=== PATIENT | male | born 1980 | race Two or more races ===

== ENCOUNTER 2017-06-10 15:09 | Emergency (ER) | payer MEDICAID ==
[2017-06-10 15:22] VITALS: BP 118/75
--- NOTE | 2017-06-10 15:43 | ED Physician Documentation ---
PD HPI URI - Stated complaint Stated Complaint: POSS FEVER - Chief complaint Chief Complaint: General - History obtained from History obtained from: Patient - History of Present Illness Timing - onset: How many days ago (3) Timing duration: Days (2) Timing details: Abrupt onset, Now resolved Associated symptoms: Fever, Chills, NVD (He had fever chills and some nausea but no vomiting. He has had a lot of diarrhea. He states it lasted for 1-2 days and has improved. He was feeling better the last day from last evening into today. No further diarrhea or feeling of fevers. He has not had any head cold symptoms or cough. He was going to return to work but is employer said he needed a work note clearing him since he had had a diarrheal illness. He has not had any recent travel. He has not been any recent antibiotics.) Contributing factors: No: Sick contact, Travel, Immunocompromised Similar symptoms before: Has not had sx before Recently seen: Not recently seen Review of Systems Constitutional: reports: Fever (for 2 days, improved the past day), Chills, Myalgias Nose: denies: Rhinorrhea / runny nose, Congestion Throat: denies: Sore throat Respiratory: denies: Cough GI: reports: Nausea, Diarrhea (improved). denies: Abdominal Pain, Vomiting Skin: denies: Rash, Lesions PD PAST MEDICAL HISTORY - Past Medical History Cardiovascular: None Respiratory: None Neuro: Head injury, Seizure disorder Endocrine/Autoimmune: None GI: None : None HEENT: None Psych: Bipolar disorder, Schizophrenia, Post traumatic stress disorder Musculoskeletal: None Derm: None - Past Surgical History Past Surgical History: Yes - Present Medications Home Medications: Ambulatory Orders Medication Instructions Recorded Confirmed No Known Home Medications [No 06/10/17 06/10/17 Known Home Medications] - Allergies Allergies/Adverse Reactions: Allergies Allergy/AdvReac Type Severity Reaction Status Date / Time No Known Drug Allergies Allergy Verified 06/10/17 15:22 - Social History Does the pt smoke?: No Smoking Status: Former smoker Does the pt drink ETOH?: No Does the pt have substance abuse?: No - Immunizations Immunizations are current?: No - POLST Patient has POLST: No PD ED PE NORMAL - Vitals Vital signs reviewed: Yes - General General: Alert and oriented X 3, No acute distress, Well developed/nourished - HEENT HEENT: Moist mucous membranes, Pharynx benign - Neck Neck: Supple, no meningeal sign, No adenopathy - Cardiac Cardiac: RRR, No murmur - Respiratory Respiratory: Clear bilaterally - Abdomen Abdomen: Normal bowel sounds, Soft, Non tender - Derm Derm: Normal color, Warm and dry - Neuro Neuro: Alert and oriented X 3, No motor deficit, Normal speech Results - Vitals Vitals: Oxygen O2 Source Room air PD MEDICAL DECISION MAKING - ED course Complexity details: considered differential (Sounds like he had a brief viral gastroenteritis and is now feeling better. He should be low infectivity without any fever, chills, persistent diarrhea. I think it is reasonable for him to return to work since he has been without symptoms over a day.), d/w patient Departure - Departure Disposition: 01 Home, Self Care Clinical Impression: Viral gastroenteritis Condition: Stable Record reviewed to determine appropriate education?: Yes Comments: Since your symptoms have resolved he do not have any further fevers, chills, diarrhea, it is reasonable for her to resume work. I wrote a note as such. Drink lots of fluids. Forms: Activity restrictions Discharge Date/Time: 06/10/17 15:56
== END 2017-06-10 15:56 | disposition home or self-care (01) ==
LOC: ED 15:09
DX: A08.4 Viral intestinal infection, unspecified (principal); Z87.891 Personal history of nicotine dependence
CPT/HCPCS: 99282; 99283

== ENCOUNTER 2018-02-03 20:58 | Emergency (ER) | payer MEDICAID ==
[2018-02-03] MEDS ORDERED: LORazepam 0.5 MG TABLET PO STA (21:32)
--- NOTE | 2018-02-03 21:35 | ED Physician Documentation ---
PD HPI MHE - Stated complaint Stated Complaint: MHE - Chief complaint Chief Complaint: MHE - History obtained from History obtained from: Patient - History of Present Illness Primary symptom: Anxiety (37-year-old gentleman with long-standing history of bipolar and anxiety disorder currently unmedicated. Has had bad reactions to BuSpar and Abilify in the past with little them causing more anxiety. He had a verbal altercation with his boss yesterday and it has increased his anxiety. He has chronic suicidal ideation but nothing new and no plan.) Review of Systems Constitutional: reports: Reviewed and negative Throat: reports: Reviewed and negative Cardiac: reports: Reviewed and negative PD PAST MEDICAL HISTORY - Past Medical History Cardiovascular: None Respiratory: None Endocrine/Autoimmune: None GI: None : None HEENT: None Psych: Bipolar disorder, Schizophrenia, Post traumatic stress disorder Musculoskeletal: None Derm: None - Past Surgical History Past Surgical History: Yes - Present Medications Home Medications: Ambulatory Orders Medication Instructions Recorded Confirmed LORazepam [Ativan] 0.5 mg PO Q6H PRN #10 tablet 02/03/18 - Allergies Allergies/Adverse Reactions: Allergies Allergy/AdvReac Type Severity Reaction Status Date / Time No Known Drug Allergies Allergy Verified 02/03/18 21:04 - Social History Does the pt smoke?: No Smoking Status: Former smoker Does the pt drink ETOH?: No Does the pt have substance abuse?: No - Immunizations Immunizations are current?: No - POLST Patient has POLST: No PD ED PE NORMAL - Vitals Vital signs reviewed: Yes - General General: Alert and oriented X 3, No acute distress, Other (Well-kempt and groomed with good eye contact, Linear thinking.) - HEENT HEENT: PERRL, EOMI - Neuro Neuro: Alert and oriented X 3, 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 We discussed hospitalization which he declined. He has been on Ativan in the past short-term which has been helpful. Departure - Departure Disposition: Home, Self Care Clinical Impression: Anxiety Condition: Good Record reviewed to determine appropriate education?: Yes Instructions: ED Panic Attack Prescriptions: LORazepam [Ativan] 0.5 mg PO Q6H PRN #10 tablet PRN Reason: Anxiety Comments: Follow-up with [place] services for further evaluation and counseling as soon as possible. Return if worse or if new symptoms develop. Forms: Activity restrictions
[2018-02-03] MEDS ORDERED: ACETAMINOPHEN 325 MG TABLET PO STA (21:42)
[2018-02-03 21:55] VITALS: BP 129/88
== END 2018-02-03 21:58 | disposition home or self-care (01) ==
LOC: ED 20:58
DX: F41.9 Anxiety disorder, unspecified (principal); Z87.891 Personal history of nicotine dependence
CPT/HCPCS: 99283; A9270

== ENCOUNTER 2018-05-18 03:50 | Emergency (ER) | payer MEDICAID ==
[2018-05-18 03:56] VITALS: BP 121/83
--- NOTE | 2018-05-18 04:00 | ED Physician Documentation ---
PD HPI ABD PAIN - Stated complaint Stated Complaint: ABD PAIN - Chief complaint Chief Complaint: Abd Pain - History obtained from History obtained from: Patient - History of Present Illness Timing - onset: How many months ago (3) Timing - duration: Months (3) Timing - details: Intermittant (notes pain in right umbilical area when lifting or working out, or with abd fullness. Feels small lump in the area. No vomiting nor nausea. He says it has been aching more the past 1-2 weeks with activity. Thinks it is a hernia.) Quality: Cramping, Aching Location: Periumbilical Radiation: No: Lower back, Left flank, Right flank Improved by: No: Eating Worsened by: Moving (mostly with working out, sit ups, leg lifts, and with lifting objects at work too.), Palpation. No: Eating, Breathing Associated symptoms: No: Fever, Nausea, Vomiting, Diarrhea, Constipation, Dysuria Similar symptoms before: Has not had sx before Recently seen: Not recently seen Review of Systems Constitutional: denies: Fever Nose: denies: Rhinorrhea / runny nose, Congestion Throat: denies: Sore throat Respiratory: denies: Cough GI: denies: Abdominal Swelling, Nausea, Vomiting, Constipation, Diarrhea, Bloody / black stool : denies: Dysuria, Frequency, Discharge Skin: denies: Rash PD PAST MEDICAL HISTORY - Past Medical History Cardiovascular: None Respiratory: None Endocrine/Autoimmune: None GI: None : None HEENT: None Psych: Bipolar disorder, Schizophrenia, Post traumatic stress disorder Musculoskeletal: None Derm: None - Past Surgical History Past Surgical History: Yes - Present Medications Home Medications: Ambulatory Orders Medication Instructions Recorded Confirmed No Known Home Medications 05/18/18 05/18/18 - Allergies Allergies/Adverse Reactions: Allergies Allergy/AdvReac Type Severity Reaction Status Date / Time No Known Drug Allergies Allergy Verified 05/18/18 03:56 - Social History Does the pt smoke?: No Smoking Status: Never smoker Does the pt drink ETOH?: No Does the pt have substance abuse?: No - Immunizations Immunizations are current?: No - POLST Patient has POLST: No PD ED PE NORMAL - Vitals Vital signs reviewed: Yes - General General: Alert and oriented X 3, No acute distress, Well developed/nourished - Neck Neck: Supple, no meningeal sign, No adenopathy - Cardiac Cardiac: RRR, No murmur - Respiratory Respiratory: Clear bilaterally - Abdomen Abdomen: Normal bowel sounds, Soft, Non tender, Non distended, No organomegaly, Other (small hernia felt umbilical area, just to the right, which is not palpable unless he tightens abd, doing sit up type maneuver. Locally tender to deep palpation. No inguinal hernias. ) Results - Vitals Vitals: Vital Signs - 24 hr 05/18/18 03:52 Temperature 36.3 C L Heart Rate 76 Respiratory 18 Rate Blood Pressure 121/83 H O2 Saturation 99 Oxygen O2 Source Room air PD MEDICAL DECISION MAKING - ED course Complexity details: considered differential (has palpable small hernia when doing situp or stands/tensing abd. Small and reduces as default. Is locally some tender. Can refer to Surgery for consultation about repair PRN. Talked with him about problems that can arise (incarceration and obstruction). ), d/w patient Departure - Departure Disposition: 01 Home, Self Care Clinical Impression: Abdominal pain Qualifiers: Abdominal location: periumbilical Qualified Code(s): R10.33 - Periumbilical pain Umbilical hernia Qualifiers: Obstruction and gangrene presence: without obstruction or gangrene Qualified Code(s): K42.9 - Umbilical hernia without obstruction or gangrene Instructions: ED Hernia Inguinal Follow-Up: Anne Beasley ARNP [Primary Care Provider] - [facility]Provider Group] Marcus Mcclendon MD [Provider Admit Priv/Credential] - Comments: Naproxen or ibuprofen if needed for pains intermittently. This does feel like an umbilical hernia and is likely to be sore with activity. You can drink a lot of fluids and make sure you use fiber and can use a daily daily stool softener such as docusate to ensure you have an easy bowel movements and decrease abdominal pressure. Otherwise will just be sore with activity and heavy lifting. The bad problems which are very uncommon would be incarceration/strangulation or bowel obstruction related to it. These will be fairly obvious and refer to the information sheet. Otherwise follow-up with surgery office regarding potential surgical repair if it is annoying enough for you. Discharge Date/Time: 05/18/18 04:35
[2018-05-18] MEDS ORDERED: NAPROXEN 250 MG TABLET PO STA (04:26)
== END 2018-05-18 04:35 | disposition home or self-care (01) ==
LOC: ED 03:50
DX: K42.9 Umbilical hernia without obstruction or gangrene (principal)
CPT/HCPCS: 99282; 99283; A9270

== ENCOUNTER 2018-10-26 08:01 | Emergency (ER) | payer MEDICAID ==
[2018-10-26 08:14] VITALS: BP 126/85
--- NOTE | 2018-10-26 08:41 | ED Physician Documentation ---
PD HPI GI BLEED - Stated complaint Stated Complaint: BLOOD IN STOOL - Chief complaint Chief Complaint: Abd Pain - History obtained from History obtained from: Patient - History of Present Illness Timing - onset: Today Associated symptoms: BRBPR Similar symptoms before: Has not had sx before - Additional information Additional information: The patient is a 38-year-old male who presents with bright red blood per rectum. After having a bowel movement this morning he noticed blood on the toilet paper. There was no dripping of blood in the commode. He denies any rectal pain. He denies abdominal pain, nausea or vomiting. He has no history of similar symptoms in the past. He denies any recent constipation, cough, or strenuous lifting. Review of Systems Constitutional: denies: Fever Nose: denies: Congestion Cardiac: denies: Chest pain / pressure Respiratory: denies: Dyspnea, Cough GI: reports: Bloody / black stool. denies: Abdominal Pain, Nausea, Vomiting : denies: Dysuria Skin: denies: Rash Musculoskeletal: denies: Back pain Neurologic: denies: Generalized weakness, Headache PD PAST MEDICAL HISTORY - Past Medical History Cardiovascular: None Respiratory: None Endocrine/Autoimmune: None GI: None : None HEENT: None Psych: Bipolar disorder, Schizophrenia, Post traumatic stress disorder Musculoskeletal: None Derm: None - Past Surgical History Past Surgical History: Yes - Present Medications Home Medications: Ambulatory Orders Medication Instructions Recorded Confirmed Hydrocortisone [Anusol-Hc] 30 gm RC BID #1 cream..g. 10/26/18 - Allergies Allergies/Adverse Reactions: Allergies Allergy/AdvReac Type Severity Reaction Status Date / Time No Known Drug Allergies Allergy Verified 10/26/18 08:14 - Social History Does the pt smoke?: No Smoking Status: Never smoker Does the pt drink ETOH?: No Does the pt have substance abuse?: No - Immunizations Immunizations are current?: No - POLST Patient has POLST: No PD ED PE NORMAL - Vitals Vital signs reviewed: Yes (Normal) - General General: Alert and oriented X 3, Well developed/nourished - HEENT HEENT: Atraumatic, Pharynx benign - Neck Neck: No adenopathy - Cardiac Cardiac: RRR - Respiratory Respiratory: No respiratory distress, Clear bilaterally - Abdomen Abdomen: Soft, Non tender - Rectal Rectal: Other (Scant bright red blood on finger with rectal exam. No rectal tenderness.) - Back Back: No CVA TTP - Derm Derm: No rash - Neuro Neuro: Alert and oriented X 3, Normal speech PD ED PE EXPANDED - Rectal Rectal: Heme Occult Pos - QC +, Normal Tone Results - Vitals Vitals: Vital Signs - 24 hr 10/26/18 08:12 Temperature 36.7 C Heart Rate 72 Respiratory 12 Rate Blood Pressure 126/85 H O2 Saturation 96 Oxygen O2 Source Room air PD MEDICAL DECISION MAKING - ED course Complexity details: considered differential, d/w patient, d/w family ED course: The patient's presentation is most consistent with internal hemorrhoid. There is no mass or rectal pain on rectal examination. The patient is being discharged with prescription for Anusol HC. I discussed with him and his the expected course of healing, symptomatic treatment and outpatient follow-up, as well as potentially worrisome signs or symptoms that should prompt reevaluation in the emergency department. Departure - Departure Disposition: 01 Home, Self Care Clinical Impression: Internal hemorrhoid Condition: Stable Instructions: ANUSOL-HC Suppositories, ED Hemorrhoids Follow-Up: Anne Beasley ARNP [Primary Care Provider] - Prescriptions: Hydrocortisone [Anusol-Hc] 30 gm RC BID #1 cream..g. Comments: Use stool softener for the next 5 to 10 days. Wash your anal area twice daily with warm soapy water. Apply Anusol HC suppository twice daily. Avoid straining that causes increased abdominal pressure. Follow-up with your primary physician within 2 weeks. Return to the emergency department if you develop increasing rectal bleeding, or otherwise worsening symptoms.
== END 2018-10-26 08:48 | disposition home or self-care (01) ==
LOC: ED 08:01
DX: K64.8 Other hemorrhoids (principal)
CPT/HCPCS: 99282; 99284

== ENCOUNTER 2018-11-13 20:57 | Emergency (ER) | payer MEDICAID ==
[2018-11-13 21:06] VITALS: BP 124/74
--- NOTE | 2018-11-13 21:20 | ED Physician Documentation ---
PD HPI UPPER EXT INJURY - Stated complaint Stated Complaint: LFT SHLDR INJ - Chief complaint Chief Complaint: Ext Problem - History obtained from History obtained from: Patient - History of Present Illness Timing - onset: How many days ago (5) Timing - duration: Days (5) Timing - details: Gradual onset Pain level max: 7 Pain level now: 6 Improved by: Rest Worsened by: Moving, Palpating - Additonal information Additional information: states dull aching pain to the L "trapezius" for the past 5 days. states this has happened in the past when he sleeps wrong. no relief with tylenol. No injury. Review of Systems Constitutional: denies: Fever, Chills GI: denies: Vomiting, Diarrhea Skin: denies: Rash Musculoskeletal: denies: Neck pain, Back pain Neurologic: denies: Headache PD PAST MEDICAL HISTORY - Past Medical History Past Medical History: No Cardiovascular: None Respiratory: None Neuro: Other Endocrine/Autoimmune: None GI: Hemorrhoids : None HEENT: None Psych: Bipolar disorder, Schizophrenia, Post traumatic stress disorder Musculoskeletal: None Derm: None Other Past Medical History: umbilical hernia - Past Surgical History Past Surgical History: Yes - Present Medications Home Medications: Ambulatory Orders Medication Instructions Recorded Confirmed Hydrocortisone [Anusol-Hc] 30 gm RC BID #1 cream..g. 10/26/18 Cyclobenzaprine [Flexeril] 10 mg PO TID PRN #20 tablet 11/13/18 Meloxicam [Mobic] 15 mg PO DAILY PRN #20 tablet 11/13/18 - Allergies Allergies/Adverse Reactions: Allergies Allergy/AdvReac Type Severity Reaction Status Date / Time No Known Drug Allergies Allergy Verified 11/13/18 21:06 - Social History Does the pt smoke?: No Smoking Status: Former smoker Does the pt drink ETOH?: Yes Does the pt have substance abuse?: Yes Substance Use and Type: Marijuana - Immunizations Immunizations are current?: No - POLST Patient has POLST: No PD ED PE NORMAL - Vitals Vital signs reviewed: Yes - General General: Alert and oriented X 3, No acute distress - HEENT HEENT: PERRL, Moist mucous membranes - Neck Neck: Supple, no meningeal sign, No bony TTP - Cardiac Cardiac: RRR - Respiratory Respiratory: No respiratory distress, Clear bilaterally - Derm Derm: Warm and dry - Extremities Extremities: Other (Left shoulder - Neurovascular intact including axillary nerve. Full range of motion of the shoulder present. He is tender over the rhomboid muscle. Mild spasm present. No bony tenderness.) - Neuro Neuro: Alert and oriented X 3 Results - Vitals Vitals: Vital Signs - 24 hr 11/13/18 21:04 Temperature 37.1 C Heart Rate 73 Respiratory 17 Rate Blood Pressure 124/74 O2 Saturation 97 Oxygen O2 Source Room air PD MEDICAL DECISION MAKING - ED course Complexity details: considered differential, d/w patient ED course: 38-year-old male with rhomboid muscle strain. Will place on meloxicam and Flexeril. No indication for x-ray. Patient counseled regarding signs and symptoms for which I believe and urgent re-evaluation would be necessary. Patient with good understanding of and agreement to plan and is comfortable going home at this time This document was made in part using voice recognition software. While efforts are made to proofread this document, sound alike and grammatical errors may occur. Departure - Departure Disposition: 01 Home, Self Care Clinical Impression: Rhomboid muscle strain Qualifiers: Encounter type: initial encounter Qualified Code(s): S29.012A - Strain of muscle and tendon of back wall of thorax, initial encounter Condition: Good Instructions: ED Strain Muscle Ext Follow-Up: Anne Beasley ARNP [Primary Care Provider] - Within 1 week Prescriptions: Cyclobenzaprine [Flexeril] 10 mg PO TID PRN #20 tablet PRN Reason: Spasms Meloxicam [Mobic] 15 mg PO DAILY PRN #20 tablet PRN Reason: pain Comments: Return if you worsen. Follow-up with your doctor for further care. Do not drive or operate heavy machinery while taking the Flexeril. Forms: Activity restrictions Discharge Date/Time: 11/13/18 21:43
[2018-11-13] MEDS ORDERED: MELOXICAM 7.5 MG TABLET PO STA (21:30)
== END 2018-11-13 21:43 | disposition home or self-care (01) ==
LOC: ED 20:57
DX: S29.012A Strain of muscle and tendon of back wall of thorax, initial encounter (principal); Z87.891 Personal history of nicotine dependence
CPT/HCPCS: 99282; 99284; A9270

== ENCOUNTER 2019-02-06 07:00 | Outpatient (CLI) | payer MEDICAID ==
[2019-02-06 19:04] LABS: BILIRUBIN,URINE NEGATIVE (NEGATIVE); GLUCOSE, URINE (UA) NEGATIVE (NEGATIVE); KETONES,URINE (UA) NEGATIVE (NEGATIVE); LEUKOCYTE ESTERASE, URINE NEGATIVE (NEGATIVE); NITRITE,URINE NEGATIVE (NEGATIVE); OCCULT BLOOD,URINE NEGATIVE (NEGATIVE); PH,URINE 6.5 PH (5.0-7.5); PROTEIN,URINE NEGATIVE (NEGATIVE); UROBILINOGEN,URINE 0.2 (NORMAL) E.U./dL (NORMAL)
[2019-02-06 19:08] LABS: CLARITY,URINE CLEAR (CLEAR)
== END 2019-02-06 23:59 | disposition home or self-care (01) ==
LOC: LAB.R 07:00
PROVIDERS: ATTEND Physician Assistant Medical
DX: N45.1 Epididymitis (principal)
CPT/HCPCS: 81001; 81003; 87086

== ENCOUNTER 2019-02-08 13:38 | Outpatient (CLI) | payer MEDICAID ==
[2019-02-08 18:44] LABS: BASOPHILS % (AUTO) 0.4 %; EOSINOPHILS # (AUTO) 0.2 10^3/uL (0.0-0.7); EOSINOPHILS % (AUTO) 3.1 %; HGB - HEMOGLOBIN 14.2 g/dL (14.0-18.0); LYMPHOCYTES # (AUTO) 1.6 10^3/uL (1.5-3.5); LYMPHOCYTES % (AUTO) 30.3 %; MEAN CORPUSCULAR HEMOGLOBIN 29.3 pg (27.0-31.0); MEAN CORPUSCULAR HGB CONC 33.4 g/dL (32.0-36.0); MEAN CORPUSCULAR VOLUME 87.8 fL (80.0-94.0); MEAN PLATELET VOLUME 10.6 fL (7.4-11.4); MONOCYTES # (AUTO) 0.4 10^3/uL (0.0-1.0); MONOCYTES % (AUTO) 7.8 %; NEUTROPHILS # (AUTO) 3.1 10^3/uL (1.5-6.6); NEUTROPHILS % (AUTO) 58.2 %; PLT - PLATELET COUNT 236 10^3/uL (130-450); RED BLOOD COUNT 4.84 10^6/uL (4.70-6.10); RED CELL DISTRIBUTION WIDTH 12.6 % (12.0-15.0); WHITE BLOOD COUNT 5.2 x10^3/uL (4.8-10.8)
[2019-02-08 19:06] LABS: ALBUMIN 4.2 g/dL (3.2-5.5); ALBUMIN/GLOBULIN RATIO 1.3 (1.0-2.2); ALKALINE PHOSPHATASE 62 IU/L (42-121); ALT ALANINE AMINOTRANSFERASE 18 IU/L (10-60); AST ASPARTATE AMINOTRANSFERASE 23 IU/L (10-42); BUN - BLOOD UREA NITROGEN 13 mg/dL (6-20); CALCIUM 9.5 mg/dL (8.5-10.3); CARBON DIOXIDE - CO2 26 mmol/L (21-32); CHLORIDE 101 mmol/L (101-111); CHOL/HDL RATIO 3.1 (<5.0); CHOLESTEROL 226 mg/dL; CREATININE 0.8 mg/dL (0.6-1.2); GFR - MDRD 107 (>89); GLUCOSE 90 mg/dL (70-100); HDL CHOLESTEROL 73 mg/dL; LDL CHOLESTEROL,CALCULATED 139 mg/dL; LDL/HDL RATIO 1.9 (<3.6); SODIUM 137 mmol/L (135-145); TOTAL PROTEIN 7.4 g/dL (6.7-8.2); VLDL CHOLESTEROL 14 mg/dL
== END 2019-02-08 23:59 | disposition home or self-care (01) ==
LOC: LAB.N 13:38
PROVIDERS: ATTEND Nurse Practitioner Gerontology
DX: Z13.9 Encounter for screening, unspecified (principal); N45.1 Epididymitis
CPT/HCPCS: 36415; 80050; 80061; 83721

== ENCOUNTER 2019-04-11 08:00 | Outpatient (CLI) | payer MEDICAID | END 2019-04-11 23:59 | disposition home or self-care (01) | LOC: LAB.R 08:00 | PROVIDERS: ATTEND Nurse Practitioner Gerontology | DX: K92.1 Melena (principal) | CPT/HCPCS: 82274 ==

== ENCOUNTER 2019-05-29 07:47 | Day surgery (SDC) | payer MEDICAID ==
[2019-05-29] MEDS ORDERED: LACTATED RINGERS 1,000 ML IV ONE (07:58)
[2019-05-29] MEDS ORDERED: IOVERSOL 320 100 ML VIAL IVP ONE (07:59)
--- NOTE | 2019-05-29 10:12 | ANESTHESIA ---
Pre-Anesthesia VS, & Labs - Diagnosis bloody stools - Procedure colonoscopy Vital Signs: Temp Pulse Resp BP Pulse Ox 36.6 C 81 16 120/80 96 05/29/19 07:58 05/29/19 07:58 05/29/19 07:58 05/29/19 07:58 05/29/19 07:58 Height 5 ft 9 in Weight (kg) 84 kg Body Mass Index 26.6 - NPO >8 hours Home Medications and Allergies Allergies/Adverse Reactions: Allergies Allergy/AdvReac Type Severity Reaction Status Date / Time No Known Drug Allergies Allergy Verified 11/13/18 21:06 Anes History & Medical History - Anesthetic History Anesthesia Complications: reports: No previous complications - Medical History Cardiovascular: reports: None, High cholesterol Pulmonary: reports: Pneumonia Gastrointestinal: reports: Hemorrhoids, Other Urinary: reports: None Neuro: reports: Other (aspergers) Musculoskeletal: reports: None Endocrine/Autoimmune: reports: None Blood Disorders: reports: None Skin: reports: None Smoking Status: Former smoker Exam General: Alert Dental: WNL Mouth Opening: Greater than 4 Fingerbreadths Neck Mobility: Normal Mallampati classification: II Thyromental Distance: greater than 6 cm Respiratory: Lungs clear Cardiovascular: Regular rate, Normal S1, Normal S2 Mental/Cognitive Status: Alert/Oriented X3 Plan Anesthesia Type: MAC, Total IV Consent for Procedure(s) Verified and Reviewed: Yes Code Status: Attempt Resuscitation ASA classification: 2-Mild systemic disease Is this case an emergency?: No
[2019-05-29] MEDS ORDERED: MIDAZOLAM 2 MG/2 ML VIAL IVP ONE (10:21)
[2019-05-29] MEDS ORDERED: LIDOCAINE-MPF 2% 5 ML VIAL IM ONE (10:21)
[2019-05-29] MEDS ORDERED: PROPOFOL 200 MG/20 ML VIAL IVP ONE (10:21)
[2019-05-29 11:53] VITALS: BP 123/82
[2019-05-29] MEDS ORDERED: VANCOMYCIN OPHTHALMI 8MG/0.8ML 8 MG/0.8 ML SYRINGE IO ONE ×3 (13:17→13:24)
== END 2019-05-29 07:48 | disposition home or self-care (01) ==
LOC: SDS 07:47
PROVIDERS: ATTEND Surgery
PROC: 0DBN8ZX Excision of Sigmoid Colon, Via Natural or Artificial Opening Endoscopic, Diagnostic (ICD-10-PCS; principal; 2019-05-29 09:30)
DX: K62.5 Hemorrhage of anus and rectum (principal); K59.09 Other constipation; F84.5 Asperger's syndrome; R33.9 Retention of urine, unspecified; K40.90 Unilateral inguinal hernia, without obstruction or gangrene, not specified as recurrent; L40.9 Psoriasis, unspecified; L21.9 Seborrheic dermatitis, unspecified; Z87.891 Personal history of nicotine dependence; Z87.01 Personal history of pneumonia (recurrent); Z91.5 Personal history of self-harm
CPT/HCPCS: 45380; J7120; Q9967

== ENCOUNTER 2020-10-01 12:20 | Outpatient (CLI) | payer MEDICAID ==
[2020-10-01 17:47] LABS: BASOPHILS % (AUTO) 0.6 %; EOSINOPHILS # (AUTO) 0.2 10^3/uL (0.0-0.7); EOSINOPHILS % (AUTO) 3.7 %; HCT - HEMATOCRIT 42.2 % (42.0-52.0); MEAN CORPUSCULAR HEMOGLOBIN 29.9 pg (27.0-31.0); MEAN CORPUSCULAR HGB CONC 33.2 g/dL (32.0-36.0); MEAN PLATELET VOLUME 10.8 fL (7.4-11.4); MONOCYTES # (AUTO) 0.5 10^3/uL (0.0-1.0); MONOCYTES % (AUTO) 8.6 %; NEUTROPHILS # (AUTO) 3.3 10^3/uL (1.5-6.6); NEUTROPHILS % (AUTO) 53.8 %; PLT - PLATELET COUNT 241 10^3/uL (130-450); RED BLOOD COUNT 4.69 10^6/uL (4.70-6.10); RED CELL DISTRIBUTION WIDTH 12.6 % (12.0-15.0); WHITE BLOOD COUNT 6.2 x10^3/uL (4.8-10.8)
[2020-10-01 18:00] LABS: ALBUMIN 4.7 g/dL (3.2-5.5); ALBUMIN/GLOBULIN RATIO 1.6 (1.0-2.2); ALKALINE PHOSPHATASE 67 IU/L (42-121); ALT ALANINE AMINOTRANSFERASE 20 IU/L (10-60); AST ASPARTATE AMINOTRANSFERASE 23 IU/L (10-42); BILIRUBIN,TOTAL 1.1 mg/dL (0.2-1.0); BUN - BLOOD UREA NITROGEN 14 mg/dL (6-20); CALCIUM 9.6 mg/dL (8.5-10.3); CARBON DIOXIDE - CO2 26 mmol/L (21-32); CHLORIDE 102 mmol/L (101-111); CHOL/HDL RATIO 2.3 (<5.0); CHOLESTEROL 238 mg/dL; CREATININE 0.7 mg/dL (0.6-1.2); GFR - MDRD 124 (>89); GLUCOSE 101 mg/dL (70-100); HDL CHOLESTEROL 104 mg/dL; LDL CHOLESTEROL,CALCULATED 123 mg/dL; LDL/HDL RATIO 1.2 (<3.6); POTASSIUM 3.7 mmol/L (3.5-5.0); SODIUM 137 mmol/L (135-145); TOTAL PROTEIN 7.6 g/dL (6.7-8.2); TRIGLYCERIDES 57 mg/dL; VLDL CHOLESTEROL 11 mg/dL
[2020-10-01 18:12] LABS: THYROID STIMULATING HORMONE 1.62 uIU/mL (0.34-5.60)
== END 2020-10-01 12:21 | disposition home or self-care (01) ==
LOC: LAB.N 12:20
PROVIDERS: ATTEND Student in an Organized Health Care Education/Training Program
DX: Z76.89 Persons encountering health services in other specified circumstances (principal)
CPT/HCPCS: 36415; 80050; 80061; 83721

== ENCOUNTER 2020-10-18 18:55 | Emergency (ER) | payer MEDICAID ==
[2020-10-18 19:07] VITALS: BP 112/88
[2020-10-18 19:40] LABS: BILIRUBIN,URINE NEGATIVE (NEGATIVE); GLUCOSE, URINE (UA) NEGATIVE (NEGATIVE); KETONES,URINE (UA) NEGATIVE (NEGATIVE); LEUKOCYTE ESTERASE, URINE NEGATIVE (NEGATIVE); NITRITE,URINE NEGATIVE (NEGATIVE); OCCULT BLOOD,URINE NEGATIVE (NEGATIVE); PROTEIN,URINE NEGATIVE (NEGATIVE); UROBILINOGEN,URINE 0.2 (NORMAL) E.U./dL (NORMAL)
[2020-10-18 19:41] LABS: CLARITY,URINE CLEAR (CLEAR)
[2020-10-18 19:49] LABS: BASOPHILS % (AUTO) 0.4 %; EOSINOPHILS # (AUTO) 0.3 10^3/uL (0.0-0.7); EOSINOPHILS % (AUTO) 4.4 %; HCT - HEMATOCRIT 40.9 % (42.0-52.0); HGB - HEMOGLOBIN 14.3 g/dL (14.0-18.0); LYMPHOCYTES # (AUTO) 2.3 10^3/uL (1.5-3.5); MEAN CORPUSCULAR HEMOGLOBIN 30.6 pg (27.0-31.0); MEAN CORPUSCULAR VOLUME 87.4 fL (80.0-94.0); MEAN PLATELET VOLUME 9.7 fL (7.4-11.4); MONOCYTES # (AUTO) 0.8 10^3/uL (0.0-1.0); MONOCYTES % (AUTO) 10.5 %; NEUTROPHILS # (AUTO) 3.8 10^3/uL (1.5-6.6); NEUTROPHILS % (AUTO) 52.6 %; PLT - PLATELET COUNT 234 10^3/uL (130-450); RED BLOOD COUNT 4.68 10^6/uL (4.70-6.10); RED CELL DISTRIBUTION WIDTH 12.2 % (12.0-15.0); WHITE BLOOD COUNT 7.3 x10^3/uL (4.8-10.8)
[2020-10-18 20:02] LABS: ALBUMIN 4.5 g/dL (3.2-5.5); ALBUMIN/GLOBULIN RATIO 1.5 (1.0-2.2); BILIRUBIN,TOTAL 0.5 mg/dL (0.2-1.0); CALCIUM 9.3 mg/dL (8.5-10.3); CREATININE 0.8 mg/dL (0.6-1.2); POTASSIUM 3.5 mmol/L (3.5-5.0); TOTAL PROTEIN 7.6 g/dL (6.7-8.2)
[2020-10-18] MEDS ORDERED: KETOROLAC 30 MG/ML VIAL IM STA (20:32)
--- NOTE | 2020-10-18 20:33 | ED Physician Documentation ---
History of Present Illness - Stated complaint Stated Complaint: BI LAT LEG PX - Chief complaint Chief Complaint: Ext Problem - Additonal information Additional information: 40-year-old male presents emergency department for evaluation of bilateral lower extremity pain. He reports that it begins in his low back and radiates down both legs. But he also endorses tightness in his muscles and calves bilaterally. He states the pain began yesterday but 3 days ago he got the Covid vaccine. He is concerned because the only other time he is ever had pain in his legs like this is when he developed rhabdomyolysis He works as a delivery drive r. No recent falls or trauma. No saddle anesthesia, bowel or bladder incontinence. No fevers. No history of injection drug use.. This patient denies abdominal pain or hematuria. He is well-hydrated. Review of Systems Constitutional: reports: Myalgias. denies: Fever, Chills Eyes: reports: Reviewed and negative Ears: reports: Reviewed and negative Nose: reports: Reviewed and negative Throat: reports: Reviewed and negative Cardiac: reports: Reviewed and negative Respiratory: reports: Reviewed and negative GI: reports: Reviewed and negative : reports: Reviewed and negative Skin: denies: Rash, Lesions, Abrasion (s) Musculoskeletal: reports: Back pain Neurologic: denies: Generalized weakness, Focal weakness, Numbness, Difficulty speaking PD PAST MEDICAL HISTORY - Past Medical History Cardiovascular: None, High cholesterol Respiratory: Pneumonia Neuro: Other (aspergers) Endocrine/Autoimmune: None GI: Hemorrhoids, Other : None HEENT: None Psych: Depression, Anxiety, Bipolar disorder, Schizophrenia, Panic attacks, Post traumatic stress disorder Musculoskeletal: None Derm: None - Past Surgical History Past Surgical History: Yes - Present Medications Home Medications: Ambulatory Orders Medication Instructions Recorded Confirmed Hydrocortisone [Anusol-Hc] 30 gm RC BID #1 cream..g. 10/26/18 Cyclobenzaprine [Flexeril] 10 mg PO TID PRN #20 tablet 11/13/18 Meloxicam [Mobic] 15 mg PO DAILY PRN #20 tablet 11/13/18 - Allergies Allergies/Adverse Reactions: Allergies Allergy/AdvReac Type Severity Reaction Status Date / Time No Known Drug Allergies Allergy Verified 10/18/20 19:07 - Social History Does the pt smoke?: No Smoking Status: Former smoker Does the pt drink ETOH?: Yes Does the pt have substance abuse?: Yes - Immunizations Immunizations are current?: No - POLST Patient has POLST: No PD ED PE NORMAL - General General: Alert and oriented X 3, No acute distress - HEENT HEENT: PERRL - Neck Neck: Supple, no meningeal sign - Cardiac Cardiac: RRR, No murmur - Respiratory Respiratory: Clear bilaterally - Abdomen Abdomen: Normal bowel sounds, Soft, Non tender, Non distended - Back Back: No CVA TTP, No spinal TTP. No: Other (Motor strength 5 of 5 bilaterally. No lower lumbar paraspinous muscle tenderness elicited. Normal gait.) - Derm Derm: Normal color, Warm and dry, No rash - Extremities Extremities: No deformity. No: No tenderness to palpate (Tenderness to palpation of the muscles of the bilateral thighs and lower calves without swelli ng erythema or rash noted. Normal gait.) Results - Vitals Vitals: Vital Signs - 24 hr 10/18/20 19:03 Temperature 36.9 C Heart Rate 77 Respiratory 16 Rate Blood Pressure 112/88 H O2 Saturation 98 Oxygen O2 Source Room air - Labs Labs: Laboratory Tests 10/18/20 10/18/20 10/18/20 19:30 19:45 19:45 WBC 7.3 RBC 4.68 L Hgb 14.3 Hct 40.9 L MCV 87.4 MCH 30.6 MCHC 35.0 RDW 12.2 Plt Count 234 MPV 9.7 Neut # (Auto) 3.8 Lymph # (Auto) 2.3 [place] # (Auto) 0.8 Eos # (Auto) 0.3 Baso # (Auto) 0.0 Absolute Nucleated RBC 0.00 Nucleated RBC % 0.0 Sodium 138 Potassium 3.5 Chloride 99 L Carbon Dioxide 29 Anion Gap 10.0 BUN 19 Creatinine 0.8 Estimated GFR (MDRD) 106 Glucose 105 H Calcium 9.3 Total Bilirubin 0.5 AST 23 ALT 18 Alkaline Phosphatase 74 Total Creatine Kinase 132 Total Protein 7.6 Albumin 4.5 Globulin 3.1 Albumin/Globulin Ratio 1.5 Lipase 34 Urine Color YELLOW Urine Clarity CLEAR Urine pH 6.0 Ur Specific [place] 1.025 Urine Protein NEGATIVE Urine Glucose (UA) NEGATIVE Urine Ketones NEGATIVE Urine Occult Blood NEGATIVE Urine Nitrite NEGATIVE Urine Bilirubin NEGATIVE Urine Urobilinogen 0.2 (NORMAL) Ur Leukocyte Esterase NEGATIVE Ur Microscopic Review NOT INDICATED Urine Culture Comments NOT INDICATED PD MEDICAL DECISION MAKING - ED course Complexity details: reviewed results, re-evaluated patient, considered differential, d/w patient ED course: This is a well-appearing 40-year-old male that presents the emergency department for evaluation of bilateral lower extremity pain for 1 day. This follows Covid vaccine 3 days ago. He is concerned that he could have rhabdomyolysis given how much his muscles ache. On exam I was unable to elicit lower lumbar spinous tenderness. He had a negative straight leg exam bilaterally. He was tender especially in his posterior thighs bilaterally. There is no swelling or erythema. Screening labs are essentially unremarkable with preserved renal function. CK is not elevated today urine shows no hematuria or signs of infection. The etiology of his lower extremity myalgias is not clear though clearly he is not in rhabdo. 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 I have low suspicion for DVT given lack of fevers or erythema or swelling. By Wells criteria he is low risk therefore defer imaging. I have recommended this gentleman take Tylenol for any discomfort and remain well-hydrated if his symptoms worsen he is to return to the ER for second evaluation. Impression: Bilateral lower extremity pain Departure - Departure Disposition: 01 Home, Self Care Condition: Stable Record reviewed to determine appropriate education?: Yes Comments: Reji gonsales were seen in the ER today for bilateral lower extremity pain. Your screening labs are all essentially normal. Your CK today is normal. You do not have rhabdomyolysis. I am not sure what the cause of the lower extremity pain could be. 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 I would recommend that you take Tylenol 2-3 times a day for discomfort. Please continue to stay well-hydrated. If your symptoms worsen, you develop blood in the urine have any fevers or leg swelling please return immediately to the ER for a second look.
== END 2020-10-18 20:59 | disposition home or self-care (01) ==
LOC: ED 18:55
DX: M79.605 Pain in left leg (principal); M79.604 Pain in right leg; Z87.891 Personal history of nicotine dependence
CPT/HCPCS: 36415; 80053; 81001; 81003; 82550; 83690; 85025; 87086; 96372; 99283; 99284

== ENCOUNTER 2020-12-09 17:03 | Outpatient (CLI) | payer MEDICAID ==
[2020-12-09 21:00] LABS: ALBUMIN 4.4 g/dL (3.2-5.5); ALBUMIN/GLOBULIN RATIO 1.5 (1.0-2.2); ALKALINE PHOSPHATASE 66 IU/L (42-121); ALT ALANINE AMINOTRANSFERASE 22 IU/L (10-60); AST ASPARTATE AMINOTRANSFERASE 22 IU/L (10-42); BILIRUBIN,TOTAL 0.8 mg/dL (0.2-1.0); BUN - BLOOD UREA NITROGEN 19 mg/dL (6-20); CALCIUM 9.6 mg/dL (8.5-10.3); CARBON DIOXIDE - CO2 28 mmol/L (21-32); CHLORIDE 104 mmol/L (101-111); CREATININE 0.7 mg/dL (0.6-1.2); GFR - MDRD 124 (>89); GLUCOSE 97 mg/dL (70-100); SODIUM 140 mmol/L (135-145); TOTAL PROTEIN 7.4 g/dL (6.7-8.2)
[2020-12-09 21:16] LABS: BILIRUBIN,DIRECT < 0.1 mg/dL (0.1-0.5)
== END 2020-12-09 17:04 | disposition home or self-care (01) ==
LOC: LAB.N 17:03
PROVIDERS: ATTEND Student in an Organized Health Care Education/Training Program
DX: B35.1 Tinea unguium (principal)
CPT/HCPCS: 36415; 80053; 80076; 82248

== ENCOUNTER 2021-02-03 14:51 | Outpatient (CLI) | payer MEDICAID ==
[2021-02-03 18:12] LABS: BASOPHILS % (AUTO) 0.6 %; EOSINOPHILS # (AUTO) 0.2 10^3/uL (0.0-0.7); EOSINOPHILS % (AUTO) 2.2 %; HCT - HEMATOCRIT 42.6 % (42.0-52.0); HGB - HEMOGLOBIN 14.4 g/dL (14.0-18.0); LYMPHOCYTES # (AUTO) 1.5 10^3/uL (1.5-3.5); LYMPHOCYTES % (AUTO) 22.2 %; MEAN CORPUSCULAR HEMOGLOBIN 30.3 pg (27.0-31.0); MEAN CORPUSCULAR HGB CONC 33.8 g/dL (32.0-36.0); MEAN CORPUSCULAR VOLUME 89.7 fL (80.0-94.0); MEAN PLATELET VOLUME 10.4 fL (7.4-11.4); MONOCYTES # (AUTO) 0.6 10^3/uL (0.0-1.0); MONOCYTES % (AUTO) 9.1 %; NEUTROPHILS # (AUTO) 4.5 10^3/uL (1.5-6.6); NEUTROPHILS % (AUTO) 65.6 %; PLT - PLATELET COUNT 270 10^3/uL (130-450); RED BLOOD COUNT 4.75 10^6/uL (4.70-6.10); RED CELL DISTRIBUTION WIDTH 12.8 % (12.0-15.0); WHITE BLOOD COUNT 6.9 x10^3/uL (4.8-10.8)
[2021-02-03 19:07] LABS: ALBUMIN 4.6 g/dL (3.2-5.5); ALBUMIN/GLOBULIN RATIO 1.5 (1.0-2.2); BILIRUBIN,TOTAL 0.5 mg/dL (0.2-1.0); CALCIUM 9.5 mg/dL (8.5-10.3); CREATININE 0.6 mg/dL (0.6-1.2); POTASSIUM 4.1 mmol/L (3.5-5.0); TOTAL PROTEIN 7.7 g/dL (6.7-8.2)
[2021-02-04 18:35] LABS: FECAL OCCULT BLOOD (FIT) POSITIVE (NEGATIVE)
== END 2021-02-03 14:52 | disposition home or self-care (01) ==
LOC: LAB.N 14:51
PROVIDERS: ATTEND Student in an Organized Health Care Education/Training Program
DX: K92.1 Melena (principal); B35.1 Tinea unguium
CPT/HCPCS: 36415; 80053; 82274; 85025

== ENCOUNTER → 2021-02-04 | Outpatient (CLI) | payer MEDICAID ==
[2021-02-17 18:17] LABS: FECAL OCCULT BLOOD (FIT) POSITIVE (NEGATIVE)
== END ==
LOC: LAB.N 08:00
PROVIDERS: ATTEND Student in an Organized Health Care Education/Training Program
DX: K92.1 Melena (principal)
CPT/HCPCS: 82274

== ENCOUNTER 2023-06-10 21:45 | Emergency (ER) | payer MEDICAID ==
[2023-06-10 21:56] VITALS: BP 149/94
--- NOTE | 2023-06-10 22:15 | ED Physician Documentation ---
History of Present Illness - Stated complaint Stated Complaint: STIFF NECK/HEADACHE - Chief complaint Chief Complaint: General - History obtained from History obtained from: Patient - Additonal information Additional information: HPI from patient. Patient complains of 1 to 2 days of neck pain and stiffness, bilateral parietal occipital headache, subjective fevers (has not measured his temperature but "I feel hot and then cold all day long". He has been taking naproxen with transient improvement in symptoms. He is up-to-date on immunizations. He denies shortness of breath, chest pain, abdominal pain. Denies dysuria, but he did note that despite increased p.o. fluid intake all day, his urine has appeared more and more dark today. He has had mild cough, nonproductive. Denies nausea/vomiting. Review of Systems Constitutional: reports: Chills, Sweats Eyes: denies: Decreased vision, Photophobia Ears: denies: Ear pain Nose: reports: Congestion. denies: Sinus pressure / pain Cardiac: reports: Reviewed and negative Respiratory: reports: Cough. denies: Dyspnea GI: denies: Abdominal Pain, Nausea, Vomiting : denies: Dysuria, Frequency Skin: denies: Rash Musculoskeletal: reports: Neck pain. denies: Back pain Neurologic: reports: Headache. denies: Generalized weakness, Focal weakness, Numbness, Confused, Altered mental status, Head injury PD PAST MEDICAL HISTORY - Past Medical History Past Medical History: Yes Cardiovascular: None, High cholesterol Respiratory: Pneumonia Neuro: Other Endocrine/Autoimmune: None GI: Hemorrhoids, Other : None HEENT: None Psych: Depression, Anxiety, Bipolar disorder, Schizophrenia, Panic attacks, Post traumatic stress disorder Musculoskeletal: None Derm: None - Past Surgical History Past Surgical History: Yes - Present Medications Home Medications: Ambulatory Orders Medication Instructions Recorded Confirmed Hydrocortisone [Anusol-Hc] 30 gm RC BID #1 cream..g. 10/26/18 Cyclobenzaprine [Flexeril] 10 mg PO TID PRN #20 tablet 11/13/18 Meloxicam [Mobic] 15 mg PO DAILY PRN #20 tablet 11/13/18 Sertraline [Zoloft] 25 mg PO DAILY 06/10/23 06/10/23 - Allergies Allergies/Adverse Reactions: Allergies Allergy/AdvReac Type Severity Reaction Status Date / Time No Known Drug Allergies Allergy Verified 06/10/23 21:50 - Social History Does the pt smoke?: No Smoking Status: Never smoker Does the pt drink ETOH?: Yes Does the pt have substance abuse?: Yes - Immunizations Immunizations are current?: No - POLST Patient has POLST: No PD ED PE NORMAL - Vitals Vital signs reviewed: Yes - General General: Alert and oriented X 3, No acute distress, Well developed/nourished - HEENT HEENT: PERRL, EOMI, Moist mucous membranes, Pharynx benign - Neck Neck: Supple, no meningeal sign, No bony TTP - Cardiac Cardiac: RRR, No murmur, No gallop, No rub - Respiratory Respiratory: No respiratory distress, Clear bilaterally - Abdomen Abdomen: Soft, Non tender - Back Back: Other (right CVA tenderness to percussion) - Derm Derm: Normal color, Warm and dry, No rash - Extremities Extremities: No edema - Neuro Neuro: Alert and oriented X 3 Eye Opening: Spontaneous Motor: Obeys Commands Verbal: Oriented GCS Score: 15 Results - Vitals Vitals: Vital Signs - 24 hr 06/10/23 06/10/23 06/10/23 21:50 23:04 23:45 Temperature 37.9 C 37.7 C 37.7 C Heart Rate 100 97 Respiratory 18 19 Rate Blood Pressure 149/94 H O2 Saturation 98 100 Oxygen O2 Source Room air - Labs Labs: Laboratory Tests 06/10/23 06/10/23 22:14 22:35 Urine Color YELLOW Urine Clarity CLEAR Urine pH 5.5 Ur Specific [place] >=1.030 H Urine Protein 30 H Urine Glucose (UA) NEGATIVE Urine Ketones 15 H Urine Occult Blood NEGATIVE Urine Nitrite NEGATIVE Urine Bilirubin NEGATIVE Urine Urobilinogen 0.2 (NORMAL) Ur Leukocyte Esterase NEGATIVE Urine RBC None Seen Urine WBC 0-3 Ur Squamous Epith Cells NONE SEEN Urine Bacteria Rare Urine Casts 6-10 Hyaline Casts Urine Mucus Moderate Strands Ur Microscopic Review INDICATED Urine Culture Comments NOT INDICATED Nasal Influenza B PCR NOT DETECTED Nasal Influenza A PCR NOT DETECTED Nasal RSV (PCR) NOT DETECTED Nasal SARS-CoV-2 (PCR) DETECTED A PD Medical Decision Making - ED course Complexity details: reviewed results, re-evaluated patient, considered differential, d/w patient ED course: No concerning findings on urinalysis; mild proteinuria and ketonuria noted as well as an elevated specific gravity which is likely due to dehydration. The urinalysis was undertaken due to the finding of right-sided CVA tenderness on exam (as noted above in physical exam). Nasal swab PCR positive for COVID-19. Certainly, this explains his symptoms with the exception of the mild right CVA tenderness. Results discussed with patient, return precautions reviewed. He does not have any risk factors for progression to severe disease and thus Paxlovid was discussed but not recommended and patient is comfortable with foregoing this medication. Advised him to check the CDC website and use their calculator/tool to determine when he can and isolation. Departure - Departure Disposition: 01 Home, Self Care Clinical Impression: COVID-19 Condition: Good Instructions: ED Viral Syndrome Comments: There were no concerning findings on the urinalysis; the urine was rather concentrated which is likely from some degree of dehydration. The nasal swab tested positive for COVID-19. This would account for your fever, headache, and other symptoms except for the right-sided back pain, cause of which is unclear at this time. Google "CDC isolation" and then click on the link to "Isolation and Precautions for People with COVID-19 - CDC". This will have useful information for you as well as household contacts. There is a calculator on the page that will d etermine when you can end isolation. Discharge Date/Time: 06/10/23 23:45
[2023-06-10] MEDS: ACETAMINOPHEN 325 MG TABLET PO STA (22:34)
[2023-06-10 22:49] LABS: BILIRUBIN,URINE NEGATIVE (NEGATIVE); CLARITY,URINE CLEAR (CLEAR); GLUCOSE, URINE (UA) NEGATIVE (NEGATIVE); KETONES,URINE (UA) 15 mg/dL (NEGATIVE); LEUKOCYTE ESTERASE, URINE NEGATIVE (NEGATIVE); NITRITE,URINE NEGATIVE (NEGATIVE); OCCULT BLOOD,URINE NEGATIVE (NEGATIVE); PH,URINE 5.5 PH (5.0-7.5); PROTEIN,URINE 30 mg/dL (NEGATIVE); UROBILINOGEN,URINE 0.2 (NORMAL) E.U./dL (NORMAL)
[2023-06-10 22:56] LABS: BACTERIA,URINE Rare /HPF (None Seen); RBC,URINE None Seen /HPF (0-5); SQUAMOUS EPITHELIAL CELL,UR NONE SEEN (<= Few); WBC,URINE 0-3 /HPF (0-3)
[2023-06-10 22:57] LABS: CASTS, URINE 6-10 Hyaline Casts /LPF; MUCUS,URINE Moderate Strands
[2023-06-10 23:27] LABS: INFLUENZA A- RESP PCR PANEL NOT DETECTED; INFLUENZA B - RESP PCR PANEL NOT DETECTED; RSV- RESP PCR PANEL NOT DETECTED; SARS-CoV-2 -RESP PCR PANEL DETECTED
[2023-06-10 23:54] VITALS: O2SAT 100
== END 2023-06-10 23:45 | disposition home or self-care (01) ==
LOC: ED 21:45
DX: U07.1 COVID-19 (principal); R10.821 Right upper quadrant rebound abdominal tenderness; R82.998 Other abnormal findings in urine
CPT/HCPCS: 81001; 87637; 99283; A9270; 81003; 87086

== ENCOUNTER 2024-01-01 01:08 | Emergency (ER) | payer MEDICAID ==
[2024-01-01 01:16] VITALS: BP 168/99; O2SAT 99
--- NOTE | 2024-01-01 01:34 | ED Physician Documentation ---
PD HPI HEENT - Stated complaint Stated Complaint: TOOTH PX - Chief complaint Chief Complaint: Heent - History obtained from History obtained from: Patient - Additional information Additional information: Patient comes to the emergency department with chief complaint of toothache in the right mandible. He states it started a few days ago and now, he just feels pain over the whole right dental area, both mandibular and maxillary. He denies any swelling or drainage. He has had a number of extractions. No fillings that have been broken. No fevers or chills. No facial swelling. No other complai nts at this time. PD PAST MEDICAL HISTORY - Past Medical History Past Medical History: Yes Cardiovascular: None, High cholesterol Respiratory: Pneumonia Neuro: Other Endocrine/Autoimmune: None GI: Hemorrhoids, Other : None HEENT: None Psych: Depression, Anxiety, Bipolar disorder, Schizophrenia, Panic attacks, Post traumatic stress disorder Musculoskeletal: None Derm: None - Past Surgical History Past Surgical History: Yes - Present Medications Home Medications: Ambulatory Orders Medication Instructions Recorded Confirmed Amoxicillin 500 mg PO TID 7 Days #21 cap 01/01/24 - Allergies Allergies/Adverse Reactions: Allergies Allergy/AdvReac Type Severity Reaction Status Date / Time No Known Drug Allergies Allergy Verified 01/01/24 01:15 - Social History Does the pt smoke?: No Smoking Status: Never smoker Does the pt drink ETOH?: Yes Does the pt have substance abuse?: Yes - Immunizations Immunizations are current?: No - POLST Patient has POLST: No PD ED PE NORMAL - Vitals Vital signs reviewed: Yes - General General: Alert and oriented X 3, No acute distress, Well developed/nourished - HEENT HEENT: Atraumatic, PERRL, Moist mucous membranes, Other (No fractured teeth. No fluctuance or edema. No obvious dental decay. Multiple sites of well-healed, distant extraction.) - Respiratory Respiratory: No respiratory distress - Derm Derm: Normal color, Warm and dry, No rash - Extremities Extremities: No deformity - Neuro Neuro: Other (Alert, grossly intact) - Psych Psych: Normal mood, Normal affect Results - Vitals Vitals: Vital Signs - 24 hr 01/01/24 01:13 Temperature 36.8 C Heart Rate 77 Respiratory 18 Rate Blood Pressure 168/99 H O2 Saturation 99 Oxygen O2 Source Room air PD Medical Decision Making - ED course Complexity details: considered differential, d/w patient ED course: The patient was started on antibiotics here. We have discussed the need for dental follow-up and the usual indications for return. Departure - Departure Disposition: 01 Home, Self Care Clinical Impression: Pain, dental Condition: Stable Instructions: ED Tooth Pain Prescriptions: Amoxicillin 500 mg PO TID 7 Days #21 cap Comments: Please call and make a dental appointment first thing tomorrow morning. You have been given your first dose of antibiotics here in the emergency department and a prescription for the same has been electronically transmitted to the [facility] pharmacy in [place].
[2024-01-01] MEDS: AMOXICILLIN 250 MG CAPSULE PO STA (01:37)
== END 2024-01-01 01:40 | disposition home or self-care (01) ==
LOC: ED 01:08
DX: K08.89 Other specified disorders of teeth and supporting structures (principal); E78.00 Pure hypercholesterolemia, unspecified
CPT/HCPCS: 99283; A9270